=== PATIENT | male | born 1935 | race Two or more races ===

== ENCOUNTER 2024-08-15 20:38 | Inpatient (IN) | payer OTHER ==
[~2024-08-15] VITALS: Ht 177.8 cm; Wt 87.6 kg
[2024-08-15] MEDS: LINEZOLID 600MG/300ML 300 ML IV ONE (03:00)
--- NOTE | 2024-08-15 21:01 | ECG ---
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
[2024-08-15 21:10] LABS: Basophils # (auto) 0.1 10 ^3/uL (0-0.2); Basophils % (auto) 0.6 % (0.0-2.0); Eosinophils # (auto) 0.1 10 ^3/uL (0-0.8); Eosinophils % (auto) 1.5 % (0.0-7.0); Hematocrit 36.2 % (41.0-53.0); Hemoglobin 12.3 g/dL (13.5-17.5); Lymphocytes # (auto) 0.8 10 ^3/uL (0.4-5.4); Lymphocytes % (auto) 8.5 % (10.0-50.0); Mean Corpuscular Hemoglobin 30.5 pg (28.0-32.0); Mean Corpuscular Hgb Conc. 33.9 g/dL (32.0-36.0); Mean Corpuscular Volume 89.9 fL (80.0-100.0); Monocytes # (auto) 0.8 10 ^3/uL (0-1.3); Monocytes % (auto) 8.9 % (0.0-12.0); Neutrophils # (auto) 7.5 10 ^3/uL (1.6-8.6); Neutrophils % (auto) 80.5 % (37.0-80.0); Platelet Count (auto) 208 10^3/uL (140-450); Red Blood Cells 4.03 10^6/uL (4.5-5.90); Red Cell Distribution Width 14.9 % (11.8-14.3); White Blood Cell 9.3 10^3/uL (4.4-10.8)
[2024-08-15 21:28] LABS: Alanine Aminotransferase 25 U/L (7-40); Albumin 4.1 g/dL (3.2-4.8); Alkaline Phosphatase 85 U/L (46-116); Anion Gap 12 (5-15); Aspartate Aminotransferase 22 U/L (13-40); BUN/Creatinine Ratio 19.5 (10.0-20.0); Bilirubin, Total 1.2 mg/dL (0.2-1.0); Calcium 9.1 mg/dL (8.7-10.4); Chloride 102 mmol/L (98-107); Total Protein 6.1 g/dL (5.7-8.2)
--- NOTE | 2024-08-15 21:28 | ED.PDOC ---
History of Present Illness HPI Comments 89 y/o M is BIBA for ALOC. Patient is a resident of [facility]. He has a history of AFIB on Pradaxa, DM, HLD, and HTN. Facility staff called for lift assistance, initially, after patient slid out of his power scooter, this evening. Reported to have fallen and needing lift assistance, yesterday. Was not transported to the hospital. He was reportedly alert and oriented x4 yesterday. He was found today A&Ox1 (A&Ox4 normal baseline), stating the year was 1955 and location at [place], [place]. EMS 12 lead showed a fib. Accucheck 455. Upon arrival to ED, patient is oriented to person, location, and year and acknowledges falling today. He complains of buttock pain since his previous fall yesterday in addition to 4- 5 day history of shortness of breath and weakness. Patient denies having any current chest pain, cough, congestion, fever, chills, urinary symptoms, or further associated symptoms. Chief Complaint: Generalized weakness and shortness of breath Time Seen by MD: 20:45 Reviewed Notes: Nurses Notes, Spool Winder Notes, Medications, Allergies Allergies: Coded Allergies: NO KNOWN ALLERGIES (Unverified , 08/15/24) Information Source: Patient, Emergency Med Personnel Mode of Arrival: EMS Severity: Moderate Timing: Days Duration: Since onset Prehospital treatment: 12 Lead EKG, Accucheck, Manager Content Past Medical History PAST MEDICAL HISTORY: AFIB, DM, High Lipids, HTN Past Medical History (Other): Walking assistance Surgical History: Denies all surgeries Family History Family History: Unknown Social History Smoker: Non-Smoker Alcohol: Denies ETOH Use Drugs: Denies Drug Use Lives In: Other (Independent correction) All Other Systems: Reviewed and Negative (Comprehensive systems review obtained and negative except for what is stated in the HPI.) Physical Exam General Appearance: No Apparent Distress HEENT: Other (Pupils and face symmetric. Moist mucous membranes.) Neck: Full Range of Motion, Non-Tender, Normal Inspection, Supple Respiratory: Decreased Breath Sounds, No Accessory Muscle Use, No Respiratory Distress Cardiovascular: Irregular, No JVD Breast Exam: Deferred Gastrointestinal: Non Tender, Soft Genitalia: Deferred Pelvic: Deferred Rectal: Deferred Extremities: Leg edema, Normal inspection, Normal range of motion, Pedal edema Neurologic: Alert (Oriented x3), Normal Affect, Normal Mood, Other (Moves all extremities. No gross focal deficit.) Cerebellar Function: NOT DONE Reflexes: NOT DONE Skin: Dry, Normal Color, Warm Lymphatic: NOT DONE Was a procedure done? Was a procedure done?: No EKG EKG : Comments AFib, rate 96, QRS 94, QTC prolonged at 502, left axis deviation, nonspecific T change Differential Dx Considerations may include: CVA, TIA, metabolic encephalopathy, CHF, dehydration, electrolyte imbalance, renal failure, contusions, fractures, among others X-Ray, Labs, Meds, VS Vital Signs Date Time Temp Pulse Resp B/P (MAP) Pulse Ox O2 Delivery O2 Flow Rate FiO2 08/15/24 20:55 97.6 81 18 129/77 (94) 94 97.6 08/15/24 20:51 96 Lab Test 08/15/24 23:56 08/15/24 23:10 08/15/24 21:00 08/15/24 20:53 Range/Units POC Glucose 348 H 386 H 70-106 mg/dl Lactic Acid Level 2.3 *H 3.0 *H 0.4-2.0 mmol/L Test 08/15/24 20:50 Range/Units White Blood Count 9.3 4.4-10.8 10^3/uL Red Blood Count 4.03 L 4.5-5.90 10^6/uL Hemoglobin 12.3 L 13.5-17.5 g/dL Hematocrit 36.2 L 41.0-53.0 % Mean Corpuscular Volume 89.9 80.0-100.0 fL Mean Corpuscular Hemoglobin 30.5 28.0-32.0 pg Mean Corpuscular Hemoglobin Concent 33.9 32.0-36.0 g/dL Red Cell Distribution Width 14.9 H 11.8-14.3 % Platelet Count 208 140-450 10^3/uL Mean Platelet Volume 7.7 6.9-10.8 fL Neutrophils (%) (Auto) 80.5 H 37.0-80.0 % Lymphocytes (%) (Auto) 8.5 L 10.0-50.0 % Monocytes (%) (Auto) 8.9 0.0-12.0 % Eosinophils (%) (Auto) 1.5 0.0-7.0 % Basophils (%) (Auto) 0.6 0.0-2.0 % Neutrophils # (Auto) 7.5 1.6-8.6 10 ^3/uL Lymphocytes # (Auto) 0.8 0.4-5.4 10 ^3/uL Monocytes # (Auto) 0.8 0-1.3 10 ^3/uL Eosinophils # (Auto) 0.1 0-0.8 10 ^3/uL Basophils # (Auto) 0.1 0-0.2 10 ^3/uL Nucleated Red Blood Cells 0.0 % Sodium Level 132 L 136-145 mmol/L Potassium Level 5.0 3.5-5.1 mmol/L Chloride Level 102 98-107 mmol/L Carbon Dioxide Level 18 L 20-31 mmol/L Anion Gap 12 5-15 Blood Urea Nitrogen 29 H 9-23 mg/dL Creatinine 1.49 H 0.700-1.30 mg/dL Glomerular Filtration Rate Calc 45 >90 mL/min BUN/Creatinine Ratio 19.5 10.0-20.0 Serum Glucose 412 *H 74-106 mg/dL Calcium Level 9.1 8.7-10.4 mg/dL Total Bilirubin 1.2 H 0.2-1.0 mg/dL Aspartate Amino Transferase (AST) 22 13-40 U/L Alanine Aminotransferase (ALT) 25 7-40 U/L Alkaline Phosphatase 85 46-116 U/L Troponin I High Sensitivity 104 *H </=54 ng/L B-Type Natriuretic Peptide 268.78 0-100 pg/mL Total Protein 6.1 5.7-8.2 g/dL Albumin 4.1 3.2-4.8 g/dL Current Medications Medications (Trade) Dose Ordered Sig/Jose Route Start Time Stop Time Status Last Admin Acetaminophen/ Hydrocodone Bitart ([place] 5/325MG Tab) 1 tab ONCE ONCE PO 08/15/24 21:00 08/15/24 21:01 DC 08/15/24 22:57 Cefepime HCl 50 ml @ 12.5 mls/hr ONCE ONCE IV 08/15/24 22:45 08/16/24 02:44 08/15/24 23:04 Sodium Chloride 1,000 ml @ 75 mls/hr [id number] ONCE IV 08/15/24 22:45 08/16/24 12:04 08/15/24 22:45 Aspirin 325 mg ONCE ONCE PO 08/15/24 22:45 08/15/24 22:53 DC 08/16/24 00:26 Insulin Human Regular (InsuLIN R) 4 units ONCE ONCE IV 08/15/24 22:45 08/15/24 22:53 DC 08/16/24 00:01 PROCEDURE(s): HWOCT - HEAD WITHOUT CONTRAST REASON: aloc ORDER NUMBER(s): [id number], ACCESSION NUMBER(s): [id number] EXAM: CT HEAD WITHOUT CONTRAST INDICATION: aloc TECHNIQUE: CT of the head without intravenous contrast. Radiation Dose : 1. Head: CT Dose: CTDI volume is 63.19 mGy. Dose-length product is 2194.7 mGy*cm The dose indicators for CT are the volume Computed Tomography (CT) Dose Index (CTDIvol) and the Dose Length Product (DLP), and are measured in units of mGy and mGy-cm, respectively. These indicators are not patient dose, but values generated from the CT scanner acquisition factors. The report includes radiation exposure data for exposures received during this examination. COMPARISON: None FINDINGS: There is no evidence of acute intracranial hemorrhage, extra-axial collection, mass effect, midline shift, herniation or hydrocephalus. Chronic right cerebella r infarct The ventricles, sulci and cisterns are age appropriate. The beal-white differentiation is intact. Patchy periventricular and subcortical white matter hypoattenuation is nonspecific but may be related to small vessel ischemic disease. The visualized paranasal sinuses and mastoid air cells are clear. The surrounding soft tissues and osseous structures are unremarkable. IMPRESSION: 1. No acute intracranial abnormality. 2. Chronic right cerebellar infarct. Radiation optimization: All CT scans at this facility use at least one of these dose optimization techniques: automated exposure control mA and/or kV adjustmen t per patient size (includes targeted exams where dose is matched to clinical indication) or iterative reconstruction. EDURE(s): CXRP - CHEST PORTABLE REASON: sob ORDER NUMBER(s): [id number], ACCESSION NUMBER(s): [id number] EXAM: XY CHEST PORTABLE DATE OF SERVICE: 08/15/2024 09:32 PM ORDERING PHYSICIAN: JESSA DEVRIES REASON FOR EXAM: sob TECHNIQUE: Single frontal view of the chest COMPARISON: None Findings/ IMPRESSION: Mild cardiomegaly. No focal consolidation or pneumothorax. No pleural effusions. Bibasilar atelectasis/ scarring. EDURE(s): LFOR - L FOREARM XRAY REASON: fall, pain ORDER NUMBER(s): [id number], ACCESSION NUMBER(s): [id number] EXAM: XY L KNEE 3V XRAY, XY R KNEE 3V XRAY, XY L FOREARM XRAY HISTORY: fall, pain COMPARISON: None TECHNIQUE: Multiple views of the bilateral knees and left forearm Findings/impression: No acute fracture or dislocation. 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 There areno acute osseous abnormalities involving the left forearm. Moderate vascular calcifications. EDURE(s): RFOR - R FOREARM XRAY REASON: fall, pain ORDER NUMBER(s): [id number], ACCESSION NUMBER(s): [id number] CLINICAL INDICATION: fall, pain TECHNIQUE: 2 radiographic views of the right forearm were obtained. Comparison: None FINDINGS/IMPRESSION: There is no evidence of acute fracture or dislocation. Small bony enthesophyte off the tip of the olecranon process of the ulna. No displaced fat pads to suggest joint effusion Vascular calcifications in the radial and ulnar arteries. The visualized joint space is well maintained. The alignment is anatomical. There is no radiopaque foreign body. EDURE(s): LS2CT - LS SPINE WO CONTRAST REASON: fall, pain ORDER NUMBER(s): [id number], ACCESSION NUMBER(s): [id number] CT LS SPINE WO CONTRAST Date: 08/15/2024 09:21 PM History: fall, pain Comparison: None TECHNIQUE: Multiple axial CT images of the lumbosacral spine were obtained using bone algorithm. Axial and coronal reformatting was done. Bone and soft tissue windows were reviewed. Radiation Dose Information: CT Dose: CTDI volume is 32.98 mGy. Dose-length product is 2194.7 mGy*cm FINDINGS: No CT evidence of definite acute fracture, spinal dislocation, or significant appearing acute subluxation is seen. The visualized paraspinal soft tissues are grossly unremarkable. Mild levoscoliosis may be positional. Bony spondylosis and degenerative disc changes are noted throughout the lumbar spine worse at L4-5.2 to a lesser degree at L3-4. T12-L1 There is no evidence of central spinal canal or neuroforaminal stenosis. L1-L2 There is no evidence of central spinal canal or neuroforaminal stenosis. L2-L3 There is no evidence of central spinal canal or neuroforaminal stenosis. L3-L4 There is no evidence of central spinal canal or neuroforaminal stenosis. L4-L5 There is no evidence of central spinal canal or neuroforaminal stenosis. L5-S1 There is no evidence of central spinal canal or neuroforaminal stenosis. IMPRESSION: 1. No definite CT evidence of acute fracture or dislocation of the bony lumbar spine. 2. Levoscoliosis 3. Degenerative disc changes worse at L3-4 and 4 5. 4. No central spinal canal stenosis All CT scans at this medical facility are performed using dose modulation techniques as appropriate to a performed exam including the following: Automated exposure control was utilized; adjustment of the MA and/or KV according to patient size; and use of iterative reconstruction technique. EDURE(s): LKNE3 - L KNEE 3V XRAY REASON: fall, pain ORDER NUMBER(s): [id number], ACCESSION NUMBER(s): [id number] EXAM: XY L KNEE 3V XRAY, XY R KNEE 3V XRAY, XY L FOREARM XRAY HISTORY: fall, pain COMPARISON: None TECHNIQUE: Multiple views of the bilateral knees and left forearm Findings/impression: No acute fracture or dislocation. 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 There areno acute osseous abnormalities involving the left forearm. Moderate vascular calcifications. EDURE(s): RKN3 - R KNEE 3V XRAY REASON: fall, pain ORDER NUMBER(s): [id number], ACCESSION NUMBER(s): [id number] EXAM: XY L KNEE 3V XRAY, XY R KNEE 3V XRAY, XY L FOREARM XRAY HISTORY: fall, pain COMPARISON: None TECHNIQUE: Multiple views of the bilateral knees and left forearm Findings/impression: No acute fracture or dislocation. 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 There areno acute osseous ab normalities involving the left forearm. Moderate vascular calcifications. X-Ray, Labs, Meds, VS Comment 88-year-old male with a history of AFib, hypertension, dyslipidemia brought in by EMS from [facility] after his 2nd fall in 2 days. Patient complaining of low back and buttock pain from the fall, as well as bilateral forearm and bilateral knee pain. He states he has been weak and short of breath for the past 2 days. Vitals remarkable for oxygen saturation 94 on room air Exam remarkable for diminished breath sounds and tachypnea, trace bilateral lower extremity edema Rhythm strip independently interpreted by me: AFib, rate 96 CT head chronic right cerebellar infarct, nothing acute Chest x-ray cardiomegaly Bilateral forearm x-rays negative for acute fracture/dislocation Bilateral knee x-rays negative for acute fracture/dislocation CBC unremarkable, metabolic panel remarkable for sodium 132, CO2 18, BUN 29, creatinine 1.49, glucose 412, BNP 268.78, troponin 104 Patient treated with the following in the ED: [place] 5/325 mg p.o., regular insulin 4 units IV, aspirin 325 mg p.o. , 0.9 normal saline at 75 cc an hour, cefepime 1 g IV, Zyvox 600 mg IV Elevated lactic may be due to dehydration or sepsis. 30 cc/kilogram bolus was not administered due to the patient's history of AFib, elevated BNP, finding of cardiomegaly on x-ray and complaint of shortness of breath, raising the possibility of CHF. Aggressive fluid hydration could cause harm. Case discussed with Logan FONTEN[address] Dr[address] who felt the patient should be admitted here due to elevated troponin. We are authorized to admit the patient. Authorization [id number] Plan is to admit the patient for troponin trend and Cardiology evaluation. Time of 1ST Reevaluation: 21:15 Reevaluation 1ST: Unchanged Time of 2ND Reevaluation: 22:44 Reevaluation 2ND: Improved Patient Education/Counseling: Treatment, Other (need for admission ) Family Education/Counseling: No Family Present Departure 1 Departure Time of Disposition: 22:44 Impression: Primary Impression: Recurrent falls Additional Impressions: Shortness of breath General weakness Elevated troponin Elevated lactic acid level Hyperglycemia Disposition: ADMITTED INPATIENT Admit to: Tele Condition: Guarded Critical Care Note Critical Care Time?: No Stability Stability form required: No Heart Score Heart Score: Heart Score Response (Comments) Value History N/A 0 EKG N/A 0 Age N/A 0 Risk Factors N/A 0 Troponin N/A 0 Total 0 I personally scribed for JESSA DEVRIES MD ([email or web address]) on 08/15/24 at 21:28. Electronically submitted by Jimmie Duarte ([email or web address]). I personally scribed for JESSA DEVRIES MD ([email or web address]) on 08/15/24 at 23:40. Electronically submitted by Jimmie Duarte ([email or web address]). JESSA DEVRIES MD August 15, 2024 21:28
[2024-08-15 21:37] LABS: Blood Urea Nitrogen 29 mg/dL (9-23); Carbon Dioxide 18 mmol/L (20-31); Glucose 412 mg/dL (74-106); Sodium 132 mmol/L (136-145)
--- NOTE | 2024-08-15 22:08 | DVH ---
EXAM: XY CHEST PORTABLE DATE OF SERVICE: 08/15/2024 09:32 PM ORDERING PHYSICIAN: JESSA DEVRIES REASON FOR EXAM: sob TECHNIQUE: Single frontal view of the chest COMPARISON: None Findings/ IMPRESSION: Mild cardiomegaly. No focal consolidation or pneumothorax. No pleural effusions. Bibasilar atelectas is/ scarring.
--- NOTE | 2024-08-15 22:13 | DVH ---
CLINICAL INDICATION: fall, pain TECHNIQUE: 2 radiographic views of the right forearm were obtained. Comparison: None FINDINGS/IMPRESSION: There is no evidence of acute fracture or dislocation. Small bony enthesophyte off the tip of the olecranon process of the ulna. No displaced fat pads to suggest joint effusion Vascular calcifications in the radial and ulnar arteries. The visualized joint space is well maintained. The alignment is anatomical. There is no radiopaque foreign body.
--- NOTE | 2024-08-15 22:19 | DVH ---
EXAM: XY L KNEE 3V XRAY, XY R KNEE 3V XRAY, XY L FOREARM XRAY HISTORY: fall, pain COMPARISON: None TECHNIQUE: Multiple views of the bilateral knees and left forearm Findings/impression: No acute fracture or dislocation. Moderate tricompartmental osteoarthritic degenerative changes of th e bilateral knees. There areno acute osseous abnormalities involving the left forearm. Moderate vascu lar calcifications.
--- NOTE | 2024-08-15 22:20 | DVH ---
EXAM: CT HEAD WITHOUT CONTRAST INDICATION: aloc TECHNIQUE: CT of the head without intravenous contrast. Radiation Dose : 1. Head: CT Dose: CTDI volume is 63.19 mGy. Dose-length product is 2194.7 mGy*cm The dose indicators for CT are the volume Computed Tomography (CT) Dose Index (CTDIvol) and the Dose Length Product (DLP), and are measured in units of mGy and mGy-cm, respectively. These indicators are not patient dose, but values generated from the CT scanner acquisition factors. The report includes radiation exposure data for exposures received during this examination. COMPARISON: None FINDINGS: There is no evidence of acute intracranial hemorrhage, extra-axial collection, mass effect, midline s hift, herniation or hydrocephalus. Chronic right cerebellar infarct The ventricles, sulci and cisterns are age appropriate. The beal-white differentiation is intact. Patchy periventricular and subcortical white matter hypoattenuation is nonspecific but may be related to small vessel ischemic disease. The visualized paranasal sinuses and mastoid air cells are clear. The surrounding soft tissues and osseous structures are unremarkable. IMPRESSION: 1. No acute intracranial abnormality. 2. Chronic right cerebellar infarct. Radiation optimization: All CT scans at this facility use at least one of these dose optimization kellie hniques: automated exposure control mA and/or kV adjustment per patient size (includes targeted exam s where dose is matched to clinical indication) or iterative reconstruction.
--- NOTE | 2024-08-15 22:29 | DVH ---
CT LS SPINE WO CONTRAST Date: 08/15/2024 09:21 PM History: fall, pain Comparison: None TECHNIQUE: Multiple axial CT images of the lumbosacral spine were obtained using bone algorithm. Axial and coron al reformatting was done. Bone and soft tissue windows were reviewed. Radiation Dose Information: CT Dose: CTDI volume is 32.98 mGy. Dose-length product is 2194.7 mGy*cm FINDINGS: No CT evidence of definite acute fracture, spinal dislocation, or significant appearing acute subluxa tion is seen. The visualized paraspinal soft tissues are grossly unremarkable. Mild levoscoliosis may be positional. Bony spondylosis and degenerative disc changes are noted throughout the lumbar spine worse at L4-5.2 to a lesser degree at L3-4. T12-L1 There is no evidence of central spinal canal or neuroforaminal stenosis. L1-L2 There is no evidence of central spinal canal or neuroforaminal stenosis. L2-L3 There is no evidence of central spinal canal or neuroforaminal stenosis. L3-L4 There is no evidence of central spinal canal or neuroforaminal stenosis. L4-L5 There is no evidence of central spinal canal or neuroforaminal stenosis. L5-S1 There is no evidence of central spinal canal or neuroforaminal stenosis. IMPRESSION: 1. No definite CT evidence of acute fracture or dislocation of the bony lumbar spine. 2. Levoscoliosis 3. Degenerative disc changes worse at L3-4 and 4 5. 4. No central spinal canal stenosis All CT scans at this medical facility are performed using dose modulation techniques as appropriate t o a performed exam including the following: Automated exposure control was utilized; adjustment of th e MA and/or KV according to patient size; and use of iterative reconstruction technique.
[2024-08-15] MEDS: SODIUM CHLORIDE 0.9% 1,000 ML IV ONE (22:45)
[2024-08-15] MEDS: HYDROcodone-ACET 5/325MG TAB PO ONE (22:57)
[2024-08-15] MEDS: CEFEPIME 1GM/ 50ML 50 ML IV ONE (23:04)
[2024-08-16] VITALS (8 sets, daily range): BP systolic 94–137; BP diastolic 57–76; PULSE 63–112; RESP 17–22; TEMP 97.6–98.5; O2SAT 94–100
[2024-08-16] MEDS: InsuLIN REG 1unit/0.01ml Soln (100units/ml) IV ONE (00:01)
[2024-08-16] MEDS: ASPirin 325 MG TAB PO ONE (00:26)
[2024-08-16 00:49] LABS: Urine Bacteria None Seen /hpf (None Seen)
[2024-08-16 01:02] LABS: Urine Blood Negative /uL (Negative); Urine Clarity Clear (Clear); Urine Color Light-Yellow (Yellow); Urine Mucus FEW (None Seen); Urine Protein, UAD Negative (Negative); Urine Squamous Epithelial Cell FEW /hpf (<5); Urine Urobilinogen Normal (Negative); Urine WBC < 1 /HPF (0-3)
[2024-08-16] MEDS ORDERED: ACETAMINOPHEN 325 MG TAB PO PRN (01:15)
[2024-08-16] MEDS ORDERED: NITROGLYCERIN 0.4 MG SL TAB SL PRN (01:15)
--- NOTE | 2024-08-16 01:28 | DVHHP2 ---
History of Present Illness History of Present Illness Patient is 88 years old male hospice revoked with a past medical history of atrial fibrillation on Pradaxa, diabetes mellitus type 2, hypertension, hyperlipidemia was brought in from [facility] facility after fall. Information was gathered from reviewing the chart and talking to the patient. Patient is hard of hearing, his hearing aid is not working. Patient had follow up with the last couple of days including 1 yesterday, day before yesterday and also 4 days back as per patient. Last evening patient slid out of his power scooter, Patient reported he has pain in the right lower back. As per chart review patient also had some short of breath and weakness for last 4-5 days. Initial lab workup rate hemoglobin hemoglobin 12.3, sodium 132, serum creatinine 1.49, GFR 45, serum glucose 412, lactic acid 3.0, trop I 104, BNP 268 CPK 388. CXR-Mild cardiomegaly. No focal consolidation or pneumothorax. X-ray right forearm-There is no evidence of acute fracture or dislocation. X-ray of the bilateral knee and left forearm-No acute fracture or dislocation. 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 There areno acute osseous abnormalities involving the left forearm. Moderate vascular calcifications. CT head with the contrast- 1. No acute intracranial abnormality.2. Chronic right cerebellar infarct. CT lumbosacral spine- No definite CT evidence of acute fracture or dislocation of the bony lumbar spine. Levoscoliosis. Degenerative disc changes worse at L3-4 and 4 5. Past Medical History atrial fibrillation on Pradaxa, diabetes mellitus type 2, hypertension, hyperlipidemia Past Social History Patient was brought in from [facility] facility, Review of Systems Review of Systems Details of the review of other system could not be taken because of patient's hard of hearing and his hearing it was not working Allergies: Coded Allergies: NO KNOWN ALLERGIES (Unverified , 08/15/24) Medications Current Medications Medications Dose Ordered Sig/Jose Route Start Time Stop Time Status Last Admin Dose Admin Linezolid 300 ml @ 150 mls/hr Q12HR IV 08/16/24 10:00 UNV Sodium Chloride 10 ml Q8HR IV 08/16/24 06:00 Acetaminophen/ Hydrocodone Bitart 1 tab Q4HP PRN PO 08/16/24 01:15 Acetaminophen 650 mg Q6HP PRN PO 08/16/24 01:15 Nitroglycerin 0.4 mg Q5MINP PRN SL 08/16/24 01:15 Exam Vital Signs Vital Signs Date Time Temp Pulse Resp B/P (MAP) Pulse Ox O2 Delivery O2 Flow Rate FiO2 08/15/24 20:55 97.6 81 18 129/77 (94) 94 97.6 Exam General examination-patient hard of hearing HEENT- PEERLA, no acute nasal discharge Cardiovascular- S1-S2 audible, rate and rhythm regular, no murmur Respiratory- CTAB, no wheeze or rhonchi Gastrointestinal-nontender, bowel sound+. Nondistended Musculoskeletal-bruise on the right buttock right lower back, on the back of the right thigh, on the right and left forearm Lower extremity- bilateral leg edema+ Neurological- cranial nerves intact, no acute dysarthria or dysphagia Skin- bruise on the right buttock right lower back, on the back of the right thigh, on the right and left forearm Labs/Xrays Labs Test 08/16/24 00:00 08/15/24 23:56 08/15/24 23:10 08/15/24 20:50 Range/Units Urine Color Light-yellow Yellow Urine Clarity Clear Clear Urine pH 5.0 5.0-9.0 Urine Specific [place] 1.020 1.001-1.035 Urine Protein Negative Negative Urine Ketones Negative Negative Urine Blood Negative Negative /uL Urine Nitrite Negative Negative Urine Bilirubin Negative Negative Urine Urobilinogen Normal Negative mg/dL Urine Leukocyte Esterase Negative Negative /uL Urine RBC <1 0 - 3 /hpf Urine Microscopic WBC < 1 0-3 /HPF Urine Squamous Epithelial Cells Few <5 /hpf Urine Bacteria None seen None Seen /hpf Urine Mucus Few None Seen Urine Glucose 4+ H Normal mg/dL POC Glucose 348 H 70-106 mg/dl Lactic Acid Level 2.3 *H 0.4-2.0 mmol/L White Blood Count 9.3 4.4-10.8 10^3/uL Red Blood Count 4.03 L 4.5-5.90 10^6/uL Hemoglobin 12.3 L 13.5-17.5 g/dL Hematocrit 36.2 L 41.0-53.0 % Mean Corpuscular Volume 89.9 80.0-100.0 fL Mean Corpuscular Hemoglobin 30.5 28.0-32.0 pg Mean Corpuscular Hemoglobin Concent 33.9 32.0-36.0 g/dL Red Cell Distribution Width 14.9 H 11.8-14.3 % Platelet Count 208 140-450 10^3/uL Mean Platelet Volume 7.7 6.9-10.8 fL Neutrophils (%) (Auto) 80.5 H 37.0-80.0 % Lymphocytes (%) (Auto) 8.5 L 10.0-50.0 % Monocytes (%) (Auto) 8.9 0.0-12.0 % Eosinophils (%) (Auto) 1.5 0.0-7.0 % Basophils (%) (Auto) 0.6 0.0-2.0 % Neutrophils # (Auto) 7.5 1.6-8.6 10 ^3/uL Lymphocytes # (Auto) 0.8 0.4-5.4 10 ^3/uL Monocytes # (Auto) 0.8 0-1.3 10 ^3/uL Eosinophils # (Auto) 0.1 0-0.8 10 ^3/uL Basophils # (Auto) 0.1 0-0.2 10 ^3/uL Nucleated Red Blood Cells 0.0 % Sodium Level 132 L 136-145 mmol/L Potassium Level 5.0 3.5-5.1 mmol/L Chloride Level 102 98-107 mmol/L Carbon Dioxide Level 18 L 20-31 mmol/L Anion Gap 12 5-15 Blood Urea Nitrogen 29 H 9-23 mg/dL Creatinine 1.49 H 0.700-1.30 mg/dL Glomerular Filtration Rate Calc 45 >90 mL/min BUN/Creatinine Ratio 19.5 10.0-20.0 Serum Glucose 412 *H 74-106 mg/dL Calcium Level 9.1 8.7-10.4 mg/dL Total Bilirubin 1.2 H 0.2-1.0 mg/dL Aspartate Amino Transferase (AST) 22 13-40 U/L Alanine Aminotransferase (ALT) 25 7-40 U/L Alkaline Phosphatase 85 46-116 U/L Troponin I High Sensitivity 104 *H </=54 ng/L B-Type Natriuretic Peptide 268.78 0-100 pg/mL Total Protein 6.1 5.7-8.2 g/dL Albumin 4.1 3.2-4.8 g/dL Assessment/Plan Assessment/Plan Assessment and plan Fall Metabolic encephalopathy likely due to hyperglycemia/lactic acidosis Uncontrolled diabetes mellitus ENRIKE likely due to VMN NSTEMI likely Typ2 2 due to demand lead ischemia Heart failure systolic versus diastolic- [id number] Lactic acidosis SIRS Acute rhabdomyolysis Bilateral leg swelling- rule out DVT-pending Doppler study of the lower extremity bruise on the right buttock right lower back, on the back of the right thigh, on the right and left forearm Atrial fibrillation Hypertension Hyperlipidemia - hemoglobin 12.3, sodium 132, serum creatinine 1.49, GFR 45, serum glucose 412, lactic acid 3.0, trop I 104> 102> 99, BNP 268>293 CPK 388 > 351 TSH 1.72 CXR-Mild cardiomegaly. X-ray right forearm-There is no evidence of acute fracture or dislocation X-ray of the bilateral knee and left forearm-No acute fracture or dislocation. 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 There areno acute osseous abnormalities involving the left forearm. Moderate vascular calcifications. CT head with the contrast- 1. No acute intracranial abnormality.2. Chronic righ t cerebellar infarct. CT lumbosacral spine- No definite CT evidence of acute fracture or dislocation of the bony lumbar spine. Levoscoliosis. Degenerative disc changes worse at L3- 4 and 4 5. EKG x2 atrial fibrillation Plan large bruise on the right buttock and and a backup right thigh, bilateral forearms, pending Doppler study of the lower extremity to rule out DVT- we will decide about mood of DVT prophylaxis based on Doppler study report Continue IV fluid as prescribed Ordered ceftriaxone 1 g IV daily Insulin sliding scale Aspirin 81 mg p.o. daily Atorvastatin 40 mg p.o. q.h.s. Ordered repeat EKG and repeat troponin I Ordered Doppler study of the lower extremity to rule out DVT Ordered echo 2D Repeat lactic acid Pending HGB A1c, vitamin B12, folic acid, vitamin-D Goals of care, Code status ; discussed with >15 minutes PUD prophylaxis: Pantoprazole DVT prophylaxis: large bruise on the right buttock and and a backup right thigh, pending Doppler study of the lower extremity to rule out DVT Plan discussed with Dr. Davidson , nursing staff, Total time spent on patient evaluation, chart review, assessment and plan, discussion discussion >35 minutes Plan discussed with: Patient, Other (RN) My Orders Orders - BABU,MOHAMMED RESIDENT Procedure Category Date Status Time Admit ADMIT 08/16/24 Transmitted 01:06 Sodium Chloride Lock PHA 08/16/24 In Process (Saline Lock Ns) 06:00 Hydrocodone-Acet PHA 08/16/24 In Process 5/325mg Tab ([place] 01:15 Complete Blood Count LAB 08/17/24 Verified 04:00 Comprehensive LAB 08/17/24 Verified Metabolic Panel 04:00 Cardiac DIET 08/16/24 Transmitted Diet-2gna,Lofat,Lochol Breakfast Echo 2d Mode Cardiac US 08/16/24 Logged DOP 01:06 Acetaminophen Tablet PHA 08/16/24 In Process (Tylenol Tablet) 01:15 Notify Of Changes RONALDO 08/16/24 In Process From Base 01:06 Picker And Packer For RONALDO 08/16/24 In Process 24 Hours 01:06 Nitroglycerin PHA 08/16/24 In Process Sublingual (Ntrostat 01:15 Thyroid Stimulating LAB 08/16/24 In Process Hormone 01:10 Creatine Kinase LAB 08/16/24 In Process 01:10 Bilat Lower Dvt US 08/16/24 Logged 06:00 Prothrombin Time W/ LAB 08/16/24 In Process INR 01:10 Urine Bacterial RIO 08/16/24 Logged Culture 01:14 Troponin-I Hs LAB 08/16/24 Logged 01:19 Troponin-I Hs LAB 08/16/24 Logged 02:19 Troponin-I Hs LAB 08/16/24 Logged 04:19 Electrocardigram EKG 08/16/24 Logged 01:19 Electrocardigram EKG 08/16/24 Logged 02:19 Electrocardigram EKG 08/16/24 Logged 04:19 Hemoglobin A1c LAB 08/16/24 Transmitted 01:22 Vitamin B12 LAB 08/16/24 Transmitted 01:22 Folate (Folic Acid) LAB 08/16/24 Transmitted 01:22 Vitamin D, 25-Hydroxy LAB 08/16/24 Transmitted 01:22 Lactic Acid W/ Reflex LAB 08/16/24 Transmitted Order 04:00 Beta-Hydroxybutyrate LAB 08/16/24 Transmitted 01:22 Glucose Blood PHA 08/16/24 Transmitted (Accu-Chek Comfort 07:00 Bedtime Insulin Scale PHA 08/16/24 Transmitted 22:00 Moderate Insulin Ss PHA 08/16/24 Transmitted 07:00 Dextrose 50% Syringe PHA 08/16/24 Transmitted 01:30 Ceftriaxone Ivpb PHA 08/16/24 Transmitted Rocephin 10:00 Date of Service: August 16, 2024 Billing Provider: TRACY DAVIDSON MD Common Visit Codes: [id number] INP/OBS CARE (HIGH) Secondary Visit Codes: [id number] CARE PLAN 30 MINUTES CAILIN ADAMS RESIDENT August 16, 2024 01:28
[2024-08-16] MEDS ORDERED: DEXTROSE (50%) 50ML SYRG IV PRN (01:30)
[2024-08-16 01:35] LABS: INR 1.25 (0.9-1.15)
[2024-08-16] MEDS: SODIUM CHLORIDE 0.9% 1,000 ML IV SCH (02:15)
[2024-08-16] MEDS: ENOXAPARIN SOD 80 MG/0.8ML SYRINGE SC ONE (02:28)
[2024-08-16] MEDS: LINEZOLID 600MG/300ML 300 ML IV ONE (03:15)
[2024-08-16 03:46] LABS: Amphetamine Screen, Urine Neg (NEGATIVE); Barbiturate Scree,Urine Neg (NEGATIVE); Benzodiazephine Screen, Urine Neg (NEGATIVE); Cannabinoid Screen, Urine Neg (NEGATIVE); Cocaine Screen, Urine Neg (NEGATIVE); Opiate Scree,Urine Neg (NEGATIVE); Phencyclidine Screen, Urine Neg (NEGATIVE)
[2024-08-16 03:54] LABS: COVID19 ANTIGEN SOFIA FIA NEGATIVE (NEGATIVE); Rapid Influenza A Negative (Negative); Rapid Influenza B Negative (Negative)
--- NOTE | 2024-08-16 06:02 | ECG ---
[facility] Test Date: 2024-08-16 Test Time: 06:01:14 Pat Name: ISIAH BURNS Department: Room: 0276T Gender: M Vice President For Instruction: MALLORY : 1935 Requested By: CAILIN ADAMS Order Number: [id number] Reading MD: Measurements Intervals [place] Rate: 105 P: 0 [place]: 0 QRS: -45 QRSD: 96 T: 24 QT: 380 QTc: 503 Interpretive Statements Atrial fibrillation Ventricular premature complex LAD, consider left anterior fascicular block Anteroseptal infarct, old Prolonged QT interval Please click the below link to view image of tracing.
[2024-08-16] MEDS: SODIUM CHLOR 0.9% PF (SALINE LOCK) 10ML VIAL/SYR IV SCH (06:58)
[2024-08-16] MEDS: ACCU-CHEK COMFORT CURVE STRIP VI SCH (06:58)
[2024-08-16] MEDS: InsuLIN REG 1unit/0.01ml Soln (100units/ml) SC SCH ×2 (06:59→22:01)
[2024-08-16] MEDS: cefTRIAXone 2GM/50ML D5W 50 ML IV SCH (09:09)
--- NOTE | 2024-08-16 09:10 | DVH ---
Bilateral lower extremity venous duplex Clinical History: B/L LEG SWELLING Comparison: None Findings: Duplex Doppler evaluation of the deep venous systems of both lower extremities from the common femora l veins to the popliteal veins including color Doppler and spectral/pulsed waveform analysis was perf ormed. RIGHT SIDE: The common femoral vein demonstrates appropriate compressibility and waveform variability. There is compressibility/patency of the great saphenous vein at the proximal thigh. The femoral vein demonstrates appropriate compressibility and waveform variability. The deep femoral vein demonstrates appropriate compressibility and waveform variability. The popliteal vein demonstrates appropriate compressibility and waveform variability. There is normal compressibility at the tibioperoneal trunk. LEFT SIDE: The common femoral vein demonstrates appropriate compressibility and waveform variability. There is compressibility/patency of the great saphenous vein at the proximal thigh. The femoral vein demonstrates appropriate compressibility and waveform variability. The deep femoral vein demonstrates appropriate compressibility and waveform variability. The popliteal vein demonstrates appropriate compressibility and waveform variability. There is normal compressibility at the tibioperoneal trunk. Impression: 1. No deep venous thrombosis in the bilateral lower extremities.
[2024-08-16] MEDS ORDERED: LINEZOLID 600MG/300ML 300 ML IV SCH (10:00)
[2024-08-16] MEDS ORDERED: ENOXAPARIN SOD 80 MG/0.8ML SYRINGE SC SCH (10:00)
[2024-08-16 11:33] LABS: Folate (Folic Acid) 25.33 ng/mL (>5.38)
--- NOTE | 2024-08-16 11:34 | DVHSR ---
APPROVED REPORT EXAM: Two-dimensional and M-mode echocardiogram with Doppler and color Doppler. Blood Pressure: 94/76 mmHg INDICATION Bilateral leg swelling, rule out CHF RISK FACTORS Height: 70, Weight: 171 DIMENSIONS LVDd4.0 (3.8-5.7cm)LA (2D)5.6 (1.9-4.0cm)Aortic Root3.8 (2.0-3.7cm) LVDs3.1 (2.5-4.0cm)LA (MM) (1.9-4.0cm)Aortic Cusp Exc0.8 (1.5-2.0cm) EF (%) 45.0 (55-70%)Rt. Atrium5.1 (1.9-4.0cm)Asc. Aorta cm Mitral Valve MitralMitral Stenosis E wave1.21m/sMV Mean GR.2mmHg A wavem/sMV Peak GR.6mmHg E/A ratio0.02D MVAcm2 Aortic Valve Aortic ValveAortic Stenosis V10.75m/Angella Mean GR.5mmHg V21.45m/Angella Peak GR.8mmHg LVOT Diameter1.9 (1.8-2.4cm)Doppler AVA1.47cm2 AI P 1/2 Itlc525.28ms Pulmonic Valve V20.78m/s Tricuspid Valve TR Velocity2.71m/s [id number] Other Information Technically limited study due to body habitus and patient position. Conclusion lvef 40% by visual estimate mild LVH severe biatrial enlargement 4 chamber enlargement severe calcific aortic sclerosis, mean gradient not elevated, suspected low flow low gradient inde terminate , severe extensive MAC noted , mild to moderate tricuspid regurg moderate pulm htn
--- NOTE | 2024-08-16 13:18 | DVHPN2 ---
Reviewed: Care Plan, H&P, Labs, Medications, Previous Orders, Radiology Changes from previous H/P or p: No Changes Objective Vitals Vital Signs Date Time Temp Pulse Resp B/P (MAP) Pulse Ox O2 Delivery O2 Flow Rate FiO2 08/16/24 12:49 97.9 96 18 137/71 (93) 96 97.9 08/16/24 08:00 Nasal Cannula* 2 28 Intake/Output Intake and Output 08/16/24 07:00 Intake Total 650.0 ml Balance 650.0 ml Intake IV Total 650.0 ml Medications Current Medications Medications Dose Ordered Sig/Jose Route Start Time Stop Time Status Last Admin Dose Admin Linezolid 300 ml @ 150 mls/hr Q12HR IV 08/16/24 10:00 UNV Sodium Chloride 10 ml Q8HR IV 08/16/24 06:00 08/16/24 06:58 10 ML Acetaminophen/ Hydrocodone Bitart 1 tab Q4HP PRN PO 08/16/24 01:15 Acetaminophen 650 mg Q6HP PRN PO 08/16/24 01:15 Nitroglycerin 0.4 mg Q5MINP PRN SL 08/16/24 01:15 Diagnostic Test (Pha) 1 strip ACHS 08/16/24 07:00 08/16/24 11:11 1 STRIP Insulin Human Regular HS SC 08/16/24 22:00 Insulin Human Regular AC SC 08/16/24 07:00 08/16/24 11:21 3 UNITS Dextrose 50 ml UD PRN IV 08/16/24 01:30 Ceftriaxone Sodium/Dextrose 50 ml @ 50 mls/hr DAILY IV 08/16/24 10:00 08/16/24 09:09 50 MLS/HR Atorvastatin Calcium 40 mg HS PO 08/16/24 22:00 Sodium Chloride 1,000 ml @ 75 mls/hr [id number] IV 08/16/24 02:15 Laboratory Results Laboratory Tests 08/15/24 20:50 Chemistry Test 08/15/24 20:50 Albumin 4.1 g/dL (3.2-4.8) Calcium Level 9.1 mg/dL (8.7-10.4) Total Protein 6.1 g/dL (5.7-8.2) Coagulation Test 08/15/24 23:10 08/16/24 09:29 Prothrombin Time 13.0 sec (9.3-11.8) H Prothrombin Time INR 1.25 (0.9-1.15) H D-Dimer, Quantitative 1.05 mg/L FEU (0.0-0.49) H Cardiac Markers Test 08/15/24 20:50 08/16/24 03:23 B-Type Natriuretic Peptide 268.78 pg/mL (0-100) 293.39 pg/mL (0-100) LFT Test 08/15/24 20:50 Alanine Aminotransferase (ALT) 25 U/L (7-40) Alkaline Phosphatase 85 U/L (46-116) Aspartate Amino Transferase (AST) 22 U/L (13-40) Total Bilirubin 1.2 mg/dL (0.2-1.0) H HgA1c, TSH Test 08/15/24 23:10 08/16/24 03:23 Thyroid Stimulating Hormone (TSH) 1.72 uIU/mL (0.55-4.78) Hemoglobin A1c 12.1 % A1C (<5.7) H Urinalysis Test 08/16/24 00:00 Urine Color Light-yellow (Yellow) Urine Clarity Clear (Clear) Urine pH 5.0 (5.0-9.0) Urine Specific [place] 1.020 (1.001-1.035) Urine Protein Negative (Negative) Urine Ketones Negative (Negative) Urine Blood Negative /uL (Negative) Urine Nitrite Negative (Negative) Urine Bilirubin Negative (Negative) Urine Urobilinogen Normal mg/dL (Negative) Urine Leukocyte Esterase Negative /uL (Negative) Urine RBC <1 /hpf (0 - 3) Urine Microscopic WBC < 1 /HPF (0-3) Urine Squamous Epithelial Cells Few /hpf (<5) Urine Bacteria None seen /hpf (None Seen) Urine Mucus Few (None Seen) Urine Glucose 4+ mg/dL (Normal) H Labs and/or images reviewed: Labs reviewed by me, Image(s) reviewed by me Assessment/Plan Assessment/Plan Mechanical Fall Acute Metabolic encephalopathy likely due to hyperglycemia/lactic acidosis Uncontrolled diabetes mellitus: Insulin sliding scale ENRIKE likely due to VMN NSTEMI likely Typ2 2 due to demand ischemia consult for Cardiology Dr. Gastelum Acute systolic CHF exacerbation Lactic acidosis SIRS Acute rhabdomyolysis Bilateral leg swelling- DVT ruled out Bruise on the right buttock right lower back, on the back of the right thigh, on the right and left forearm Atrial fibrillation Hypertension Hyperlipidemia Slightly elevated D-dimer 1.0: DVT ruled out Patient Came from [facility] assisted living.facility Multiple x-rays including CT head and L-spine CT negative Flu test negative COVID test negative Time spent 70 minutes Patient is full code Advanced care planning time 20 minutes Patient is hospice revoked Patient was with [facility] Plan discussed with: Patient Date of Service: August 16, 2024 Billing Provider: SRIDEVI WASSERMAN MD Common Visit Codes: [id number] CARE 30-74 MIN SRIDEVI WASSERMAN MD August 16, 2024 13:18
--- NOTE | 2024-08-16 14:58 | ECG ---
[facility] Test Date: 2024-08-16 Test Time: 06:00:10 Pat Name: ISIAH BURNS Department: Room: 0276T Gender: M Surg Nurse: MALLORY : 1935 Requested By: CAILIN DAAMS Order Number: [id number] Reading MD: Measurements Intervals [place] Rate: 105 P: 0 [place]: 0 QRS: -40 QRSD: 99 T: 34 QT: 388 QTc: 513 Interpretive Statements Atrial fibrillation Left axis deviation Abnormal R-wave progression, late transition Prolonged QT interval Baseline wander in lead(s) V5 Please click the below link to view image of tracing.
[2024-08-16] MEDS: HYDROcodone-ACET 5/325MG TAB PO PRN (20:06)
[2024-08-16] MEDS: ATORVASTATIN 20 MG TAB PO SCH (22:06)
[2024-08-17 01:00] VITALS: BP 108/68; PULSE 107; RESP 18; TEMP 97.8; O2SAT 95
[2024-08-17 05:00] VITALS: BP 104/63; PULSE 89; RESP 20; TEMP 98.1; O2SAT 97
[2024-08-17 07:50] LABS: Basophils # (auto) 0 10 ^3/uL (0-0.2); Basophils % (auto) 0.7 % (0.0-2.0); Eosinophils # (auto) 0.3 10 ^3/uL (0-0.8); Eosinophils % (auto) 3.8 % (0.0-7.0); Hematocrit 32.5 % (41.0-53.0); Hemoglobin 11.4 g/dL (13.5-17.5); Lymphocytes # (auto) 0.8 10 ^3/uL (0.4-5.4); Lymphocytes % (auto) 11.6 % (10.0-50.0); Mean Corpuscular Hemoglobin 31.6 pg (28.0-32.0); Mean Corpuscular Hgb Conc. 35.1 g/dL (32.0-36.0); Mean Corpuscular Volume 90.1 fL (80.0-100.0); Monocytes # (auto) 0.7 10 ^3/uL (0-1.3); Monocytes % (auto) 10.2 % (0.0-12.0); Neutrophils # (auto) 5.2 10 ^3/uL (1.6-8.6); Neutrophils % (auto) 73.7 % (37.0-80.0); Nucleated Red Blood Cells % 0.1 %; Platelet Count (auto) 196 10^3/uL (140-450); Red Blood Cells 3.61 10^6/uL (4.5-5.90); Red Cell Distribution Width 14.6 % (11.8-14.3); White Blood Cell 7.1 10^3/uL (4.4-10.8)
[2024-08-17 08:00] VITALS: PULSE 86
[2024-08-17 08:08] LABS: Alanine Aminotransferase 21 U/L (7-40); Albumin 3.7 g/dL (3.2-4.8); Alkaline Phosphatase 75 U/L (46-116); Anion Gap 10 (5-15); Aspartate Aminotransferase 22 U/L (13-40); BUN/Creatinine Ratio 15.2 (10.0-20.0); Blood Urea Nitrogen 17 mg/dL (9-23); Calcium 9.4 mg/dL (8.7-10.4); Carbon Dioxide 22 mmol/L (20-31); Chloride 104 mmol/L (98-107); Potassium 4.3 mmol/L (3.5-5.1); Sodium 136 mmol/L (136-145); Total Protein 5.7 g/dL (5.7-8.2)
[2024-08-17 08:09] LABS: Bilirubin, Total 1.3 mg/dL (0.2-1.0); Glucose 175 mg/dL (74-106)
[2024-08-17 09:00] VITALS: BP 121/69; PULSE 89; RESP 17; TEMP 97.4; O2SAT 97
--- NOTE | 2024-08-17 12:32 | DVHPN2 ---
Reviewed: Care Plan, H&P, Labs, Medications, Previous Orders, Radiology Changes from previous H/P or p: No Changes Objective Vitals Vital Signs Date Time Temp Pulse Resp B/P (MAP) Pulse Ox O2 Delivery O2 Flow Rate FiO2 08/17/24 09:00 97.4 89 17 121/69 (86) 97 97.4 08/17/24 08:00 Nasal Cannula* 2 28 Intake/Output Intake and Output 08/17/24 07:00 Intake Total 1280 ml Output Total 360 ml Balance 920 ml Intake Oral 300 ml IV Total 980 ml Output Urine Total 360 ml Medications Current Medications Medications Dose Ordered Sig/Jose Route Start Time Stop Time Status Last Admin Dose Admin Linezolid 300 ml @ 150 mls/hr Q12HR IV 08/16/24 10:00 UNV Sodium Chloride 10 ml Q8HR IV 08/16/24 06:00 08/17/24 06:39 10 ML Acetaminophen/ Hydrocodone Bitart 1 tab Q4HP PRN PO 08/16/24 01:15 08/16/24 20:06 1 TAB Acetaminophen 650 mg Q6HP PRN PO 08/16/24 01:15 Nitroglycerin 0.4 mg Q5MINP PRN SL 08/16/24 01:15 Diagnostic Test (Pha) 1 strip ACHS 08/16/24 07:00 08/17/24 11:29 1 STRIP Insulin Human Regular HS SC 08/16/24 22:00 08/16/24 22:01 4 UNITS Insulin Human Regular AC SC 08/16/24 07:00 08/17/24 11:32 3 UNITS Dextrose 50 ml UD PRN IV 08/16/24 01:30 Ceftriaxone Sodium/Dextrose 50 ml @ 50 mls/hr DAILY IV 08/16/24 10:00 08/17/24 09:17 50 MLS/HR Atorvastatin Calcium 40 mg HS PO 08/16/24 22:00 08/16/24 22:06 40 MG Sodium Chloride 1,000 ml @ 75 mls/hr [id number] IV 08/16/24 02:15 08/17/24 04:55 75 MLS/HR Laboratory Results Laboratory Tests 08/17/24 07:00 Chemistry Test 08/17/24 07:00 Albumin 3.7 g/dL (3.2-4.8) Calcium Level 9.4 mg/dL (8.7-10.4) Total Protein 5.7 g/dL (5.7-8.2) LFT Test 08/17/24 07:00 Alanine Aminotransferase (ALT) 21 U/L (7-40) Alkaline Phosphatase 75 U/L (46-116) Aspartate Amino Transferase (AST) 22 U/L (13-40) Total Bilirubin 1.3 mg/dL (0.2-1.0) H Urinalysis Test 08/16/24 00:00 Urine Color Light-yellow (Yellow) Urine Clarity Clear (Clear) Urine pH 5.0 (5.0-9.0) Urine Specific [place] 1.020 (1.001-1.035) Urine Protein Negative (Negative) Urine Ketones Negative (Negative) Urine Blood Negative /uL (Negative) Urine Nitrite Negative (Negative) Urine Bilirubin Negative (Negative) Urine Urobilinogen Normal mg/dL (Negative) Urine Leukocyte Esterase Negative /uL (Negative) Urine RBC <1 /hpf (0 - 3) Urine Microscopic WBC < 1 /HPF (0-3) Urine Squamous Epithelial Cells Few /hpf (<5) Urine Bacteria None seen /hpf (None Seen) Urine Mucus Few (None Seen) Urine Glucose 4+ mg/dL (Normal) H Microbiology Microbiology Date/Time Source Procedure Growth Status 08/16/24 00:00 Voided Urine Urine Culture - Preliminary Resulted 08/15/24 21:20 Blood Blood Culture - Preliminary NO GROWTH AFTER 24 HOURS OF INCUBATION. Resulted Labs and/or images reviewed: Labs reviewed by me, Image(s) reviewed by me Assessment/Plan Assessment/Plan Mechanical Fall Acute Metabolic encephalopathy likely due to hyperglycemia/lactic acidosis Uncontrolled diabetes mellitus: Insulin sliding scale ENRIKE likely due to VMN NSTEMI likely Typ2 2 due to demand ischemia consult for Cardiology Dr. Gastelum Acute systolic CHF exacerbation Lactic acidosis SIRS Acute rhabdomyolysis Bilateral leg swelling- DVT ruled out Bruise on the right buttock right lower back, on the back of the right thigh, on the right and left forearm Atrial fibrillation Hypertension Hyperlipidemia Slightly elevated D-dimer 1.0: DVT ruled out Patient Came from [facility] assisted [facility].facility Multiple x-rays including CT head and L-spine CT negative Flu test negative COVID test negative Patient was with [facility] Plan discussed with: Patient Date of Service: August 17, 2024 Billing Provider: SRIDEVI WASSERMAN MD Common Visit Codes: [id number] INP/OBS CARE(HIGH) SRIDEVI WASSERMAN MD August 17, 2024 12:32
--- NOTE | 2024-08-17 12:36 | DVHDS2 ---
Discharge Summary Date of Admission August 16, 2024 at 01:06 Date of Discharge: August 17, 2024 Admitting Diagnosis Mechanical fall Wounds: None Labs/Diagnostic Data: Laboratory Results Test 08/17/24 07:00 08/16/24 21:32 08/16/24 09:29 08/16/24 03:34 White Blood Count 7.1 10^3/uL (4.4-10.8) Red Blood Count 3.61 10^6/uL (4.5-5.90) Hemoglobin 11.4 g/dL (13.5-17.5) Hematocrit 32.5 % (41.0-53.0) Mean Corpuscular Volume 90.1 fL (80.0-100.0) Mean Corpuscular Hemoglobin 31.6 pg (28.0-32.0) Mean Corpuscular Hemoglobin Concent 35.1 g/dL (32.0-36.0) Red Cell Distribution Width 14.6 % (11.8-14.3) Platelet Count 196 10^3/uL (140-450) Mean Platelet Volume 7.8 fL (6.9-10.8) Neutrophils (%) (Auto) 73.7 % (37.0-80.0) Lymphocytes (%) (Auto) 11.6 % (10.0-50.0) Monocytes (%) (Auto) 10.2 % (0.0-12.0) Eosinophils (%) (Auto) 3.8 % (0.0-7.0) Basophils (%) (Auto) 0.7 % (0.0-2.0) Neutrophils # (Auto) 5.2 10 ^3/uL (1.6-8.6) Lymphocytes # (Auto) 0.8 10 ^3/uL (0.4-5.4) Monocytes # (Auto) 0.7 10 ^3/uL (0-1.3) Eosinophils # (Auto) 0.3 10 ^3/uL (0-0.8) Basophils # (Auto) 0 10 ^3/uL (0-0.2) Nucleated Red Blood Cells 0.1 % Sodium Level 136 mmol/L (136-145) Potassium Level 4.3 mmol/L (3.5-5.1) Chloride Level 104 mmol/L (98-107) Carbon Dioxide Level 22 mmol/L (20-31) Anion Gap 10 (5-15) Blood Urea Nitrogen 17 mg/dL (9-23) Creatinine 1.12 mg/dL (0.700-1.30) Glomerular Filtration Rate Calc 64 mL/min (>90) BUN/Creatinine Ratio 15.2 (10.0-20.0) Serum Glucose 175 mg/dL (74-106) Calcium Level 9.4 mg/dL (8.7-10.4) Total Bilirubin 1.3 mg/dL (0.2-1.0) Aspartate Amino Transferase (AST) 22 U/L (13-40) Alanine Aminotransferase (ALT) 21 U/L (7-40) Alkaline Phosphatase 75 U/L (46-116) Total Protein 5.7 g/dL (5.7-8.2) Albumin 3.7 g/dL (3.2-4.8) POC Glucose 218 mg/dl (70-106) D-Dimer, Quantitative 1.05 mg/L FEU (0.0-0.49) Troponin I High Sensitivity 99 ng/L (</=54) Test 08/16/24 03:23 08/16/24 02:35 08/16/24 00:00 08/15/24 23:10 Hemoglobin A1c 12.1 % A1C (<5.7) Lactic Acid Level 1.9 mmol/L (0.4-2.0) Creatine Kinase 351 U/L (46-171) B-Type Natriuretic Peptide 293.39 pg/mL (0-100) Vitamin B12 Level 485 pg/mL (211-911) Vitamin D 25-Hydroxy 34.7 ng/mL (30.0-100) Folic Acid 25.33 ng/mL (>5.38) Beta-Hydroxybutyric Acid 0.602 mmol/L (< 0.4) Plasma/Serum Blood Alcohol < 3.0 mg/dL (<10) Influenza Type A Antigen Negative (Negative) Influenza Type B Antigen Negative (Negative) SARS-CoV-2 Antigen (Rapid) Negative (NEGATIVE) Urine Color Light-yellow (Yellow) Urine Clarity Clear (Clear) Urine pH 5.0 (5.0-9.0) Urine Specific [place] 1.020 (1.001-1.035) Urine Protein Negative (Negative) Urine Ketones Negative (Negative) Urine Blood Negative /uL (Negative) Urine Nitrite Negative (Negative) Urine Bilirubin Negative (Negative) Urine Urobilinogen Normal mg/dL (Negative) Urine Leukocyte Esterase Negative /uL (Negative) Urine RBC <1 /hpf (0 - 3) Urine Microscopic WBC < 1 /HPF (0-3) Urine Squamous Epithelial Cells Few /hpf (<5) Urine Bacteria None seen /hpf (None Seen) Urine Mucus Few (None Seen) Urine Glucose 4+ mg/dL (Normal) Urine Opiates Screen Neg (NEGATIVE) Urine Fentanyl Screen Neg (NEGATIVE) Urine Barbiturates Screen Neg (NEGATIVE) Urine Phencyclidine Screen Neg (NEGATIVE) Urine Amphetamines Screen Neg (NEGATIVE) Urine Benzodiazepines Screen Neg (NEGATIVE) Urine Cocaine Screen Neg (NEGATIVE) Urine Cannabinoids Screen Neg (NEGATIVE) Prothrombin Time 13.0 sec (9.3-11.8) Prothrombin Time INR 1.25 (0.9-1.15) Thyroid Stimulating Hormone (TSH) 1.72 uIU/mL (0.55-4.78) Other Laboratory Tests 08/17/24 07:00 Brief Hx & Hospital Course: Male with multiple medical problems including hypertension hypercholesterolemia atrial fibrillation congestive heart failure NERIKE had a mechanical fall brought to the hospital admitted.. Patient was on hospice. Multiple x-rays and CTs were negative. DVT ruled out D-dimer 1.[address] head negative L-spine CT were negative flu test negative COVID test negative patient is being discharged back to home on hospice Consults/Reason for consult none Operations or Procedures X-rays and CTs Condition at Discharge: Fair Final Diagnosis/Problems List Mechanical Fall Acute Metabolic encephalopathy likely due to hyperglycemia/lactic acidosis Uncontrolled diabetes mellitus: Insulin sliding scale ENRIKE likely due to VMN NSTEMI likely Typ2 2 due to demand ischemia consult for Cardiology Dr. Gastelum Acute systolic CHF exacerbation Lactic acidosis SIRS Acute rhabdomyolysis Bilateral leg swelling- DVT ruled out Bruise on the right buttock right lower back, on the back of the right thigh, on the right and left forearm Atrial fibrillation Hypertension Hyperlipidemia Slightly elevated D-dimer 1.0: DVT ruled out Patient Came from [facility] Multiple x-rays including CT head and L-spine CT negative Flu test negative COVID test negative Discharge Disposition: Hospice - Home Discharge Instruct/Medications Diet: Cardiac 2g Na,low cholest Activity: Light activity Follow Up/Referral: Follow up with the hospice Dr Workman all previous home medications Medications: None 35 (Time Taken for discharge summary 35 minutes) Discharge Statement: "Patient was advised to return to the ER or call 911 if any headaches, dizziness, shortness of breath, chest pain, abdominal pain, bleeding, fevers, or worsening of medical condition. Patient was counseled about treatment plan, medications, possible side effects, patientverbalized understanding. All questions were answered to the best of my ability. This discharge took greater then 30 minutes in planning, reviewing documentation, counseling the patient, and discussing with other team members." ASSESSMENT ASSESSMENT Hospital Course Uneventful Assessment Mechanical Fall Acute Metabolic encephalopathy likely due to hyperglycemia/lactic acidosis Uncontrolled diabetes mellitus: Insulin sliding scale ENRIKE likely due to VMN NSTEMI likely Typ2 2 due to demand ischemia consult for Cardiology Dr. Gastelum Acute systolic CHF exacerbation Lactic acidosis SIRS Acute rhabdomyolysis Bilateral leg swelling- DVT ruled out Bruise on the right buttock right lower back, on the back of the right thigh, on the right and left forearm Atrial fibrillation Hypertension Hyperlipidemia Slightly elevated D-dimer 1.0: DVT ruled out Patient Came from [facility] assisted living.facility Multiple x-rays including CT head and L-spine CT negative Flu test negative COVID test negative Date of Service: August 17, 2024 Billing Provider: SRIDEVI WASSERMAN MD Common Visit Codes: 88691-GQP/OBS DISCH DAY >30min SRIDEVI WASSERMAN MD August 17, 2024 12:36
[2024-08-17 13:00] VITALS: BP 110/74; PULSE 97; RESP 18; TEMP 97.8; O2SAT 97
[2024-08-17 17:00] VITALS: BP 130/66; PULSE 68; RESP 18; TEMP 97.8; O2SAT 92
== END 2024-08-17 18:35 | disposition hospice, home (50) | DRG 557 ==
LOC: ER 20:38 → OVERFLOW 08-16 01:06 → TELE-WESTW 08-16 05:18
PROVIDERS: ADMIT Family Medicine; ATTEND Family Medicine
DX: M62.82 Rhabdomyolysis (principal); G93.41 Metabolic encephalopathy; N17.0 Acute kidney failure with tubular necrosis; I50.23 Acute on chronic systolic (congestive) heart failure; I21.A1 Myocardial infarction type 2; E87.20 Acidosis, unspecified; R65.10 Systemic inflammatory response syndrome (SIRS) of non-infectious origin without acute organ dysfunction; E78.5 Hyperlipidemia, unspecified; Z20.822 Contact with and (suspected) exposure to COVID-19; S30.0XXA Contusion of lower back and pelvis, initial encounter; I11.0 Hypertensive heart disease with heart failure; E11.65 Type 2 diabetes mellitus with hyperglycemia; E78.00 Pure hypercholesterolemia, unspecified; I48.91 Unspecified atrial fibrillation; M54.50 Low back pain, unspecified; M41.9 Scoliosis, unspecified; M17.0 Bilateral primary osteoarthritis of knee; W18.39XA Other fall on same level, initial encounter; Z79.82 Long term (current) use of aspirin; Y93.89 Activity, other specified; Y92.89 Other specified places as the place of occurrence of the external cause; Y99.8 Other external cause status; Z86.73 Personal history of transient ischemic attack (TIA), and cerebral infarction without residual deficits
CPT/HCPCS: 36415; 70450; 71045; 72131; 73090; 73562; 80053; 80307; 80320; 81001; 82010; 82306; 82550; 82607; 82746; 82962; 83036; 83605; 83880; 84443; 84484; 85025; 85379; 85610; 87040; 87086; 87426; 87804; 93005; 93306; 93970; 96365; G0378; J1815